=== PATIENT | male | born 1960 | race Caucasian/White ===

== ENCOUNTER 2017-05-05 08:50 | Emergency (ER) | payer OTHER ==
[2017-05-05 08:58] VITALS: BP 162/96
[2017-05-05] MEDS ORDERED: PSEUDOEPHEDRINE 30 MG TABLET PO STA (09:07)
--- NOTE | 2017-05-05 09:10 | ED Physician Documentation ---
PD HPI HEENT - Stated complaint Stated Complaint: EAR PX - Chief complaint Chief Complaint: Heent - History obtained from History obtained from: Patient - History of Present Illness Timing - onset: How many days ago (4) Timing - details: Gradual onset, Still present Location: Right ear, Left ear Associated symptoms: Congestion. No: Fever, Unable to swallow Similar symptoms before: Has not had sx before Recently seen: Not recently seen - Additional information Additional information: Patient is a 56 year old male with no significant past medical history who is presenting to the emergency department for ear pressure. patient states that he flew in a few days ago and after landing his ears felt plugged. patient states that the symptoms haven't gone away so he came in to get checked out. Review of Systems Constitutional: denies: Fever, Chills Eyes: denies: Decreased vision, Photophobia Ears: reports: Ear pain. denies: Drainage/discharge, Foreign body Nose: reports: Congestion, Sinus pressure / pain. denies: Rhinorrhea / runny nose Throat: denies: Dental pain / toothache, Sore throat Cardiac: denies: Chest pain / pressure Respiratory: denies: Dyspnea, Cough GI: reports: Reviewed and negative : reports: Reviewed and negative Skin: reports: Reviewed and negative Musculoskeletal: reports: Reviewed and negative Neurologic: denies: Altered mental status, Headache, Head injury, LOC Psychiatric: reports: Reviewed and negative Endocrine: reports: Reviewed and negative PD PAST MEDICAL HISTORY - Past Medical History Past Medical History: No - Past Surgical History Past Surgical History: No - Present Medications Home Medications: Ambulatory Orders Medication Instructions Recorded Confirmed Pseudoephedrine [Sudafed] 30 mg PO Q6H #14 tablet 05/05/17 - Allergies Allergies/Adverse Reactions: Allergies Allergy/AdvReac Type Severity Reaction Status Date / Time No Known Drug Allergies Allergy Verified 05/05/17 08:58 - Social History Does the pt smoke?: No Smoking Status: Never smoker PD ED PE NORMAL - Vitals Vital signs reviewed: Yes - General General: Alert and oriented X 3, No acute distress, Well developed/nourished - HEENT HEENT: Atraumatic, PERRL, Moist mucous membranes, Pharynx benign - Neck Neck: Supple, no meningeal sign, No JVD - Cardiac Cardiac: RRR, No murmur - Respiratory Respiratory: No respiratory distress - Abdomen Abdomen: Soft, Non tender, Non distended - Derm Derm: Normal color, Warm and dry, No rash - Extremities Extremities: No deformity - Neuro Neuro: Alert and oriented X 3, No motor deficit, No sensory deficit, Normal speech - Psych Psych: Normal mood PD ED PE EXPANDED - HEENT HEENT: R TM loss of landmarks, L TM loss of landmarks, Other (mild fluid build up behind bilateral ears with streaky erythema, no sign of acute infection) Results - Vitals Vitals: Vital Signs - 24 hr 05/05/17 08:55 Temperature 36.9 C Heart Rate 75 Respiratory 17 Rate Blood Pressure 162/96 H O2 Saturation 96 PD MEDICAL DECISION MAKING - ED course Complexity details: reviewed old records, re-evaluated patient, considered differential, d/w patient ED course: Patient was seen and examined at bedside. patient had no signs of acute infection. patient was treated with psuedophedrine. Patient required no imaging or further work up at this time and was stable for discharge with outpatient follow up. Departure - Departure Disposition: 01 Home, Self Care Clinical Impression: Congestion of both ears Condition: Good Instructions: Middle Ear Common Probs, Anatomy Inner Ear Follow-Up: primary,care provider [Other] Prescriptions: Pseudoephedrine [Sudafed] 30 mg PO Q6H #14 tablet Comments: Your symptoms today are being caused by congested ears. there is no sign of acute infection. You should take sudafed or other oral decongestant. Make sure you stay well hydrated as well as dehydration can exacerbate your symptoms. You should follow up with your pmd if your symptoms persist. You may return to the emergency department at any time for new, worsening or uncontrollable symptoms.
== END 2017-05-05 09:18 | disposition home or self-care (01) ==
LOC: ED 08:50
DX: H93.8X3 Other specified disorders of ear, bilateral (principal)
CPT/HCPCS: 99283; A9270